=== PATIENT | male | born 1950 | race Caucasian/White ===

== ENCOUNTER 2021-06-01 15:46 | Emergency (ER) | payer OTHER ==
[~2021-06-01] VITALS: Ht 172.7 cm; Wt 61.0 kg
[~2021-06-01 15:46] MED LIST: CYCL-1 PO; NAPR500T6 PO
[2021-06-01] MEDS ORDERED: normal saline 1000ml 1,000 ML IV ONE ×2 (16:25→17:15)
[2021-06-01 16:46] LABS: BASOPHILS # (AUTO) 0.1 X10'3 (0-0.2); BASOPHILS % (AUTO) 0.8 % (0-1); EOSINOPHILS # (AUTO) 0.2 X10'3 (0-0.9); EOSINOPHILS % (AUTO) 2.9 % (0-6); HEMATOCRIT 35.8 % (42.0-52.0); HEMOGLOBIN 11.9 g/dl (14.0-17.9); LYMPHOCYTES # (AUTO) 1.5 X10'3 (1.1-4.8); LYMPHOCYTES % (AUTO) 20.8 % (21-51); MEAN CORPUSCULAR HEMOGLOBIN 26.4 PG (27.0-31.0); MEAN CORPUSCULAR HGB CONC 33.3 g/dL (33.0-36.5); MEAN CORPUSCULAR VOLUME 79.3 FL (78-98); MEAN PLATELET VOLUME 7.8 FL (7.4-10.4); MONOCYTES # (AUTO) 0.4 X10'3 (0-0.9); MONOCYTES % (AUTO) 5.7 % (2-12); NEUTROPHILS # (AUTO) 5.1 X10'3 (1.8-7.7); NEUTROPHILS % (AUTO) 69.8 % (42-75); PLATELET COUNT 310 X10'3 (140-440); RED BLOOD COUNT 4.51 X10'6 (4.70-6.10); RED CELL DISTRIBUTION WIDTH 15.2 % (11.5-14.5); WHITE BLOOD COUNT 7.4 X10'3 (4.5-11.0)
--- NOTE | 2021-06-01 16:47 | NUR ---
NO ROOM AVAILABLE, STARTED TREATMENT OUTSIDE, PT IS RESTING QUIETLY IN CHAIR
[2021-06-01 17:05] LABS: ALANINE AMINOTRANSFERASE 16 U/L (12-78); ALBUMIN/GLOBULIN RATIO 0.8 (1.1-1.5); ALKALINE PHOSPHATASE 107 IU/L (46-116); ANION GAP 10 (8-16); ASPARTATE AMINO TRANSFERASE 11 U/L (10-37); BILIRUBIN,TOTAL 0.3 MG/DL (0.1-1.0); BLOOD UREA NITROGEN 25 MG/DL (7-18); BUN/CREATININE RATIO 24.5 (5.4-32.0); CALCIUM 8.3 MG/DL (8.5-10.1); CHLORIDE 100 MMOL/L (99-107); CREATININE 1.02 MG/DL (0.60-1.10); GLUCOSE 411 MG/DL (70-104); POTASSIUM 4.9 MMOL/L (3.5-5.1); SODIUM 133 MMOL/L (135-145); TOTAL CARBON DIOXIDE 22.6 MMOL/L (24-32); TOTAL PROTEIN 6.8 G/DL (6.4-8.2); eGFR 72 ML/MIN
--- NOTE | 2021-06-01 17:35 | NUR ---
PT TO CT,
[2021-06-01 18:55] LABS: CLARITY,URINE CLEAR (Clear); COLOR,URINE YELLOW (Yellow); GLUCOSE, URINE >=1000 mg/dl (Neg); KETONES,URINE NEGATIVE (Neg); LEUKOCYTE ESTERASE ,URINE NEGATIVE (Neg); NITRITES, URINE NEGATIVE (Neg); OCCULT BLOOD,URINE NEGATIVE (Neg); PROTEIN,URINE NEGATIVE (Neg)
[2021-06-01 19:08] LABS: URINE AMPHETAMINE SCREEN POSITIVE (Neg); URINE BARBITUATE SCREEN NEGATIVE (Neg); URINE BENZODIAZEPINES SCREEN NEGATIVE (Neg); URINE CANNABINOID SCREEN NEGATIVE (Neg); URINE COCAINE SCREEN NEGATIVE (Neg); URINE METHADONE SCREEN NEGATIVE (Neg); URINE OPIATE SCREEN NEGATIVE (Neg); URINE PHENCYCLIDINE SCREEN NEGATIVE (Neg)
[2021-06-01 19:09] LABS: UA COLLECTION TYPE VOIDED
[2021-06-01 19:10] LABS: BACTERIA,URINE NONE SEEN /HPF (Neg); MUCUS STRANDS NONE SEEN /LPF (Neg); RBC,URINE NONE SEEN /HPF (0-2); SQUAMOUS EPITHELIAL CELL,UR NONE SEEN /LPF (FEW); WBC,URINE 0-4 /HPF (0-4)
[2021-06-01 20:25] VITALS: BP 130/68
[2021-06-01 20:59] LABS: ETHANOL < 0.010 GM/DL (0.0-0.010); MAGNESIUM 1.5 MG/DL (1.5-2.4)
== END 2021-06-01 21:52 | disposition home or self-care (01) ==
LOC: ER 15:47
DX: R53.1 Weakness (principal); Z20.822 Contact with and (suspected) exposure to COVID-19; R51.9 Headache, unspecified; R42 Dizziness and giddiness; R11.0 Nausea; E11.9 Type 2 diabetes mellitus without complications; G89.29 Other chronic pain; Z72.89 Other problems related to lifestyle; Z79.899 Other long term (current) drug therapy
CPT/HCPCS: 36415; 70450; 71045; 80053; 80305; 80320; 81001; 82948; 83605; 83735; 83880; 84145; 84484; 85025; 87040; 87635; 93005; 96360; 99285; C9803; J7030; 87077; 87186

== ENCOUNTER 2023-03-28 12:10 | Emergency (ER) | payer OTHER, MEDICARE ==
[~2023-03-28] VITALS: Ht 172.7 cm; Wt 45.0 kg
[2023-03-28 12:29] VITALS: BP 99/43
== END 2023-03-28 16:11 | disposition left against medical advice (07) ==
LOC: ER 12:10
DX: R53.1 Weakness (principal); Z53.21 Procedure and treatment not carried out due to patient leaving prior to being seen by health care provider
CPT/HCPCS: 99281

== ENCOUNTER 2025-01-11 17:11 | Emergency (ER) | payer OTHER, MEDICARE ==
[~2025-01-11] VITALS: Ht 172.7 cm; Wt 63.6 kg
[~2025-01-11 17:11] MED LIST changes: +NAPR-1480 PO; -NAPR500T6 PO
[2025-01-11 19:45] LABS: BASOPHILS # (AUTO) 0.1 X10'3 (0-0.2); BASOPHILS % (AUTO) 1.5 % (0-1); EOSINOPHILS # (AUTO) 0.4 X10'3 (0-0.9); EOSINOPHILS % (AUTO) 5.8 % (0-6); HEMOGLOBIN 10.1 g/dl (14.0-17.9); LYMPHOCYTES # (AUTO) 1.6 X10'3 (1.1-4.8); LYMPHOCYTES % (AUTO) 21.3 % (21-51); MEAN CORPUSCULAR HEMOGLOBIN 23.5 PG (27.0-31.0); MEAN CORPUSCULAR HGB CONC 32.5 g/dL (33.0-36.5); MEAN CORPUSCULAR VOLUME 72.2 FL (78-98); MEAN PLATELET VOLUME 7.5 FL (7.4-10.4); MONOCYTES # (AUTO) 0.6 X10'3 (0-0.9); MONOCYTES % (AUTO) 7.9 % (2-12); NEUTROPHILS # (AUTO) 4.9 X10'3 (1.8-7.7); NEUTROPHILS % (AUTO) 63.5 % (42-75); PLATELET COUNT 346 X10'3 (140-440); RED CELL DISTRIBUTION WIDTH 17.6 % (11.5-14.5); WHITE BLOOD COUNT 7.7 X10'3 (4.5-11.0)
[2025-01-11 19:47] LABS: ANION GAP 10 (8-16); CHLORIDE 104 MMOL/L (99-107); POTASSIUM 4.6 MMOL/L (3.5-5.1); SODIUM 139 MMOL/L (135-145); TOTAL CARBON DIOXIDE 24.7 MMOL/L (24-32)
[2025-01-11 20:11] LABS: ALANINE AMINOTRANSFERASE 19 U/L (12-78); ALBUMIN 3.2 G/DL (3.4-5.0); ALBUMIN/GLOBULIN RATIO 0.7 (1.1-1.5); ALKALINE PHOSPHATASE 129 IU/L (46-116); ASPARTATE AMINO TRANSFERASE 18 U/L (10-37); BILIRUBIN,TOTAL 0.4 MG/DL (0.1-1.0); BLOOD UREA NITROGEN 26 MG/DL (7-18); BUN/CREATININE RATIO 22.6 (10.0-20.0); CALCIUM 8.9 MG/DL (8.5-10.1); CREATININE 1.15 MG/DL (0.60-1.10); GLUCOSE 124 MG/DL (70-104); TOTAL PROTEIN 7.8 G/DL (6.4-8.2); eCRCL 52 ML/MIN; eGFR 63 ML/MIN
[2025-01-11] MEDS ORDERED: TRAM50TA2 PO (20:32)
[2025-01-11 21:05] VITALS: BP 110/64; PULSE 80; RESP 18; TEMP 98.6; O2SAT 99
== END 2025-01-11 21:05 | disposition home or self-care (01) ==
LOC: ER 17:12
DX: E11.621 Type 2 diabetes mellitus with foot ulcer (principal); G89.29 Other chronic pain; M54.9 Dorsalgia, unspecified; Z72.89 Other problems related to lifestyle
CPT/HCPCS: 36415; 73630; 80053; 83605; 85025; 99284; A6223; A6446

== ENCOUNTER 2025-03-14 17:26 | Emergency (ER) | payer MEDICARE, OTHER ==
[~2025-03-14] VITALS: Ht 165.1 cm; Wt 55.9 kg
[2025-03-14] MEDS ORDERED: DICL100G59 TOP (17:50)
[2025-03-14] MEDS ORDERED: ACET-75 PO (17:50)
[2025-03-14] MEDS ORDERED: LACT1CAP60 (17:50)
[2025-03-14] MEDS ORDERED: GABA-530 PO (17:50)
[2025-03-14] MEDS ORDERED: ATOR20TA66 PO (17:50)
[2025-03-14] MEDS ORDERED: COLL30OI (17:50)
[2025-03-14] MEDS ORDERED: MELA5TAB66 PO (17:50)
[2025-03-14] MEDS ORDERED: FERR325T29 (17:50)
[2025-03-14 18:01] LABS: BASOPHILS % (AUTO) 0.2 % (0-1); EOSINOPHILS % (AUTO) 0.1 % (0-6); HEMATOCRIT 28.6 % (42.0-52.0); HEMOGLOBIN 9.5 g/dl (14.0-17.9); LYMPHOCYTES % (AUTO) 7.5 % (21-51); MEAN CORPUSCULAR HEMOGLOBIN 24.3 PG (27.0-31.0); MEAN CORPUSCULAR HGB CONC 33.4 g/dL (33.0-36.5); MEAN CORPUSCULAR VOLUME 72.8 FL (78-98); MEAN PLATELET VOLUME 7.3 FL (7.4-10.4); MONOCYTES # (AUTO) 0.7 X10'3 (0-0.9); MONOCYTES % (AUTO) 5.4 % (2-12); NEUTROPHILS # (AUTO) 11.5 X10'3 (1.8-7.7); NEUTROPHILS % (AUTO) 86.8 % (42-75); PLATELET COUNT 305 X10'3 (140-440); RED BLOOD COUNT 3.93 X10'6 (4.70-6.10); RED CELL DISTRIBUTION WIDTH 20.5 % (11.5-14.5); WHITE BLOOD COUNT 13.2 X10'3 (4.5-11.0)
--- NOTE | 2025-03-14 18:27 | Physician Documentation ---
History of Present Illness ~ Chief Complaint: Wound Stated Complaint: FEET SWOLLEN/WOUND ON FOOT Time Seen by MD: 17:38 HPI The patient is Seen today with complaints of diabetic pressure ulcer on posterior lateral right heel measuring approximately 5 cm in length and 4 cm in across. Patient is seen today with his family members who state that patient developed acute pain of his right 3rd toe just today. Patient is being followed closely for wound care of the diabetic ulcer. Patient developed some bruising along the 3rd toe without any known injury. Tetanus within 5 years?: No Medication Reconciliation Allergies: Coded Allergies: No Known Allergies (Unverified , 03/28/23) Scheduled Atorvastatin Calcium (Atorvastatin Calcium), 1 TAB PO DAILY, (Reported) Diclofenac Sodium (Diclofenac Sodium), 2 GM TOP QID, (Reported) Ferrous Sulfate (Ferrous Sulfate), 1 TAB DAILY, (Reported) Gabapentin (Gabapentin), 1 CAP PO TID, (Reported) Melatonin (Melatonin), 1 TAB PO HS, (Reported) Naproxen (Naproxen), 1 TABLET PO BID Scheduled PRN Acetaminophen (Acetaminophen), 2 TAB PO Q8H PRN for pain, (Reported) Miscellaneous Medications Collagenase Oint* (Santyl Oint*), (Reported) Lactobac Cmb #3/Fos/Pantethine (Probiotic & Acidophilus Cap), (Reported) Discontinued Medications Cyclobenzaprine* (Cyclobenzaprine*), 1 TABLET PO HS PRN for muscle spasms Discontinued Reason: patient no longer taking Past Medical History Past Medical History: Diabetes, Chronic Back Pain Past Surgical History: no surgical history Alcohol Use: Occasionally Drug Use: none Lives In: Home Occupation: disabled Review of Systems Constitutional: Denies: chills, fever, weakness Eyes: Denies: pain, blurred vision ENT: Denies: ear pain, nose pain, throat pain, mouth pain Respiratory: Denies: cough, shortness of breath Cardiovascular: Denies: chest pain, palpitations Gastrointestinal: Denies: abdominal pain, nausea, vomiting Genitourinary: Denies: burning, dysuria Male Genitalia: Denies: penile discharge, testicular pain Neurological: Denies: headache, dizziness Musculoskeletal: Denies: pain, swelling Integumentary: Denies: rash, lesions Allergic/Immunologic: Denies: hives, itching Hematologic/Lymphatic: Denies: no symptoms reported Psychiatric: Denies: depression, anxiety Physical Exam Vital Signs: Temperature: 98.5, Source: Temporal, Heart Rate: 86, Respiratory Rate: 18, BP: 112/51, Pulse Oximetry: 100, Weight: 55.910 Oxygen Flow Rate: 0 Physical Exam General: Awake and Alert, no acute distress. HEENT: Conjunctiva pink, Sclera clear, Mucus Membranes moist. Neck: Supple without masses and tenderness. Resp: Unlabored. Lungs clear to auscultation bilaterally. Heart: Regular Rate and rhythm, normal S1 and S2 without murmur, rub or gallop. Abdomen: Soft and non tender no organomegaly Extremities: Patient on exam has nonhealing ulcer to the lateral aspect of the right heel measuring approximately 5 cm x 4 cm. Patient also has absent pedal pulses of the right lower extremity. Patient has slow capillary refill distally and diminished light touch sensation distally of the right lower extremity. Skin: Warm and Dry. Progress Progress Note Family members here to pickle pumper patient. They signed out against medical advice. Risks discussed. They plan on going to [facility] Emergency room. Results/Orders Results/Orders Vital Signs 03/14/25 03/14/25 03/14/25 03/14/25 17:29 18:37 18:39 21:11 Temp 98.5 Pulse 86 83 98 Resp 18 18 B/P (MAP) 112/51 140/71 (94) 143/75 (97) Pulse Ox 100 O2 Flow Rate 0 03/14/25 03/15/25 03/15/25 03/15/25 22:22 00:28 01:43 05:08 Pulse 81 73 74 81 Resp 17 17 B/P (MAP) 160/65 (96) 134/66 (88) 158/65 (96) 128/66 (86) 03/15/25 03/15/25 03/15/25 03/15/25 07:07 09:15 09:46 11:16 Pulse 65 75 65 66 Resp 14 16 18 16 B/P (MAP) 146/86 (106) 133/60 (84) 133/60 (84) 98/72 (81) Pulse Ox 98 98 97 98 O2 Flow Rate 0 03/15/25 03/15/25 03/15/25 03/15/25 12:01 12:02 12:38 12:44 Temp 97.6 Pulse 68 80 Resp 18 18 16 16 B/P (MAP) 145/79 (101) 145/79 (101) Pulse Ox 97 98 O2 Flow Rate 0 0 03/15/25 03/15/25 03/15/25 03/15/25 13:36 14:40 16:27 18:42 Pulse 88 93 93 Resp 14 12 16 16 B/P (MAP) 141/94 (110) 116/68 (84) 114/78 (90) Pulse Ox 99 98 97 O2 Flow Rate 0 0 03/15/25 03/15/25 18:43 18:44 Resp 18 B/P (MAP) Laboratory Tests Test 03/14/25 17:43 03/14/25 18:04 03/14/25 19:05 03/14/25 19:52 White Blood Count 13.2 H Red Blood Count 3.93 L Hemoglobin 9.5 L Hematocrit 28.6 L Mean Corpuscular Volume 72.8 L Mean Corpuscular Hemoglobin 24.3 L Mean Corpuscular Hemoglobin Concent 33.4 Red Cell Distribution Width 20.5 H Platelet Count 305 Mean Platelet Volume 7.3 L Neutrophils (%) (Auto) 86.8 H Lymphocytes (%) (Auto) 7.5 L Monocytes (%) (Auto) 5.4 Eosinophils (%) (Auto) 0.1 Basophils (%) (Auto) 0.2 Neutrophils # (Auto) 11.5 H Lymphocytes # (Auto) 1.0 L Monocytes # (Auto) 0.7 Eosinophils # (Auto) 0.0 Basophils # (Auto) 0.0 CBC Comment Platelet Estimate Normal Red Blood Cell Morphology Perf Basophilic Stippling Anisocytosis 3+ Microcytosis 1+ Erythrocyte Sedimentation Rate 66 H Sodium Level 136 Potassium Level 3.9 Chloride Level 107 Carbon Dioxide Level 24.3 Anion Gap 5 L Blood Urea Nitrogen 28 H Creatinine 0.94 Estimated GFR/1.73 m2 79 BUN/Creatinine Ratio 29.8 H 34.3 H Glucose Level 253 H Calcium Level 8.9 C-Reactive Protein 13.97 H Albumin 3.1 L Procalcitonin 0.13 Chemistry Comments Random Vancomycin Level 0.1 L Glucometer 235 H Lactic Acid Level 1.4 Bedside Hemoglobin 9.2 L Bedside Hematocrit 27 L Bedside Sodium 139 Bedside Potassium 4.0 Bedside Chloride 107 Bedside Total CO2 20 L Bedside Anion Gap 12 Bedside Blood Urea Nitrogen 24 H Bedside Creatinine 0.7 L Bedside Estimated GFR (eGFR) > 90 Bedside Glucose 229 H Bedside Ionized Calcium (Kallie) 1.23 Test 03/14/25 21:39 03/15/25 08:41 03/15/25 11:52 03/15/25 14:37 Urine Specimen Description Cln catch midstream Urine Color Yellow Urine Clarity Clear Urine pH 6.0 Urine Specific Caro 1.025 Urine Protein 100 H Urine Glucose (UA) 500 H Urine Ketones Negative Urine Occult Blood Trace-intact Urine Nitrite Negative Urine Bilirubin Negative Urine Urobilinogen 0.2 Urine Leukocyte Esterase Negative Urine RBC 0-2 Urine WBC 0-4 Urine Squamous Epithelial Cells Few Urine Bacteria None seen Urine Mucus Few Urine Culture Indicated Not ind Volume Urine Centrifuged 10 ml Urine Comment Glucometer 90 136 H 120 H EKG/XRAY/CT/US/VASC/MRI Bone/Soft Tissue X-Ray (Ext.) : Additional Comment DIAGNOSTIC RADIOLOGY Patient: NAT CASANOVA Medical Record: [id number] [facility] : 1950, Age: 74 Sex: Male Location: ER Patient Status: [facility] ER Service Date/Time: 03/14/251847 Ordering Physician: BAMBI CORTES PAC Exam: FOOT, COMPLETE (3VW MIN) Clinical History foot pain Comparison None Technique: right foot 3 views Without Contrast NAT CASANOVA, [id number] Findings: Bones: No displaced fracture. old fracture at the base of the fourth and fifth metatarsal. Soft tissues: No swelling. No foreign body. Basilar opacifications Joints: Visualized joints are within normal limits. degenerative changes in the midfoot and first MTP joint Impression: 1. No acute fracture or dislocation. 2. Chronic appearing fracture of the fourth and fifth metatarsals 3. Degenerative changes. 4. Osteopenic bones This report was electronically signed by Adam Altamirano MD on 03/14/2025 9:44:05 PM. Electronically Signed by:ADAM ALTAMIRANO MD Date & Time: 03/14/252145 Dictated by: ADAM ALTAMIRANO MD Dictation date and time: 03/14/252145 Primary Care Provider: NO PRIMARY CARE PROVIDER cc: BAMBI CORTES ~ Medical Decision Making Findings The patient is Seen today with complaints of diabetic pressure ulcer on posterior lateral right heel measuring approximately 5 cm in length and 4 cm in across. Patient is seen today with his family members who state that patient developed acute pain of his right 3rd toe just today. Patient is being followed closely for wound care of the diabetic ulcer. Patient developed some bruising along the 3rd toe without any known injury. Patient labs did show concern for sepsis along with vitals. Hospitalist was consulted and patient was started on Zosyn and vancomycin IV. Patient also given Benadryl 50 mg and Gray 5/325 mg by mouth for pain into help patient sleep. Patient did have arterial Dopplers/vascular study done of right lower extremity that did show severe peripheral vascular disease as well as patient had ankle-brachial index right lower extremity that was 0.25. We recommended transfer to hospital that has vascular specialist however they declined transfer outside of the area. Patient and family members did agree to antibiotic treatment tonight in the ED and afterwards they will transfer to [facility] for vascular surgery consult. Departure Disposition: LEFT AGAINST MEDICAL ADVICE Impression: Primary Impression: Wound Additional Impression: PVD (peripheral vascular disease) Condition: Stable Additional Instructions: Patient labs did show concern for sepsis along with vitals. Hospitalist was consulted and patient was started on Zosyn and vancomycin IV. Patient also given Benadryl 50 mg and Gray 5/325 mg by mouth for pain into help patient sleep. Patient did have arterial Dopplers/vascular study done of right lower extremity that did show severe peripheral vascular disease as well as patient had ankle-brachial index right lower extremity that was 0.25. We recommended transfer to hospital that has vascular specialist however they declined transfer outside of the area. Patient and family members did agree to antibiotic treatment tonight in the ED and afterwards they will transfer to [facility] for vascular surgery consult. Referrals: NO PRIMARY CARE PROVIDER (PCP) Signature Scribe Signature: No scribe Attestation: The note accurately reflects work and decisions made by me.Onel Bosch MD 03/15/25 20:56 No scribe BAMBI CORTES March 14, 2025 18:27 ONEL BOSCH MD March 15, 2025 20:56
[2025-03-14 19:34] LABS: ALBUMIN 3.1 G/DL (3.4-5.0); ANION GAP 5 (8-16); BLOOD UREA NITROGEN 28 MG/DL (7-18); BUN/CREATININE RATIO 29.8 (10.0-20.0); C-REACTIVE PROTEIN 13.97 MG/DL (0.0-0.5); CALCIUM 8.9 MG/DL (8.5-10.1); CHLORIDE 107 MMOL/L (99-107); CREATININE 0.94 MG/DL (0.60-1.10); GLUCOSE 253 MG/DL (70-104); POTASSIUM 3.9 MMOL/L (3.5-5.1); SODIUM 136 MMOL/L (135-145); TOTAL CARBON DIOXIDE 24.3 MMOL/L (24-32); eCRCL 56 ML/MIN; eGFR 79 ML/MIN
[2025-03-14 19:38] LABS: ANISOCYTOSIS 3+; PLATELET ESTIMATE NORMAL
[2025-03-14 19:39] LABS: MICROCYTOSIS 1+
[2025-03-14 20:01] LABS: ISTAT ANION GAP 12 (8-12); ISTAT BUN 24 mg/dL (7-18); ISTAT CL 107 mmol/L (99-107); ISTAT CREATININE 0.7 mg/dL (0.8-1.3); ISTAT GLUCOSE 229 mg/dL (70-104); ISTAT HGB 9.2 g/dl (14.0-17.9); ISTAT Hct 27 %PCV (42-52); ISTAT IONIZED CALCIUM 1.23 mmol/L (1.03-1.32); ISTAT NA 139 mmol/L (135-145); ISTAT TOTAL CO2 20 mmol/L (24-32); ISTAT eGFR > 90 ML/MIN; POC BUN/CREATININE RATIO 34.3 (5.4-32.0)
--- NOTE | 2025-03-14 21:46 | RADIOLOGY REPORT ---
Clinical History foot pain Comparison None Technique: right foot 3 views Without Contrast EDILBERTONAT, [id number] Findings: Bones: No displaced fracture. old fracture at the base of the fourth and fifth metatarsal. Soft tissues: No swelling. No foreign body. Basilar opacifications Joints: Visualized joints are within normal limits. degenerative changes in the midfoot and first MT P joint Impression: 1. No acute fracture or dislocation. 2. Chronic appearing fracture of the fourth and fifth metatarsals 3. Degenerative changes. 4. Osteopenic bones This report was electronically signed by Adam Caro MD on 03/14/2025 9:44:05 PM.
[2025-03-14 22:05] LABS: BILIRUBIN,URINE NEGATIVE (Neg); CLARITY,URINE CLEAR (Clear); COLOR,URINE YELLOW (Yellow); GLUCOSE, URINE 500 mg/dl (Neg); KETONES,URINE NEGATIVE (Neg); LEUKOCYTE ESTERASE ,URINE NEGATIVE (Neg); NITRITES, URINE NEGATIVE (Neg); OCCULT BLOOD,URINE TRACE-INTACT (Neg); PROTEIN,URINE 100 mg/dl (Neg); UROBILINOGEN,URINE 0.2 E.U/dL (0.2-1.0)
[2025-03-14 22:09] LABS: UA COLLECTION TYPE CLN CATCH MIDSTREAM
[2025-03-14 22:15] LABS: RBC,URINE 0-2 /HPF (0-2); WBC,URINE 0-4 /HPF (0-4)
[2025-03-14 22:16] LABS: MUCUS STRANDS FEW /LPF (Neg); SQUAMOUS EPITHELIAL CELL,UR FEW /LPF (FEW)
[2025-03-14 22:17] LABS: BACTERIA,URINE NONE SEEN /HPF (Neg)
[2025-03-14] MEDS: piperacillin/tazo 3.375gm/50ml 50 ML IV STA (23:12)
[2025-03-15] MEDS ORDERED: VANCOMYCIN/H2O 1.5g/300mL PB 300 ML IV ONE
[2025-03-15] MEDS: HYDROcodone/acetaminophen 5mg/325mg tablet PO STA (00:23)
[2025-03-15] MEDS: diphenhydrAMINE 25mg capsule PO STA (00:23)
[2025-03-15] MEDS: vancomycin inj. 750 MG in normal saline 250ml IV soln 250 ML IV SCH (01:10)
[2025-03-15 01:41] LABS: VANCOMYCIN,RANDOM 0.1 ug/mL (20.0-30.0)
[2025-03-15] MEDS: VANCOMYCIN/H2O 1.5g/300mL PB 300 ML IV ONE (02:09)
--- NOTE | 2025-03-15 02:31 | VASCULAR REPORT ---
BILATERAL Lower Extremity Arterial Duplex Date: 03/14/2025 07:28 PM Clinical History: Acute pain right 3rd toe Comparison: None Technique: Duplex Doppler evaluation including color Doppler and spectral/pulsed waveform analysis of the right lower extremity arteries was performed. Finding: ARON: Right 0.25, left 0.61 RIGHT: Peak systolic velocities are as follows: RECORD TESTER 210 cm/s Deep femoral 170 cm/s SFA proximal 114 cm/s SFA mid-portion 331 cm/s SFA distal 14.3 cm/s Popliteal 26.6 cm/s Posterior tibial 0 cm/s Anterior tibial 16 cm/s Peroneal 9.1 cm/s The waveforms are monophasic at the popliteal artery and distal REFERENCE VALUES, [facility] ([facility]) vascular Imaging Lab Criteria: Peak systolic velocity ranges (in cm/sec) are as follows: <150 cm/s - <20 % stenosis 150-200 cm/s - 20-49% stenosis 200-300 cm/s - 50-75% stenosis >300 cm/s -> 75% stenosis IMPRESSION: 1. Severe stenosis in the right mid superficial femoral artery and additional [id number] stenos es in the mid superficial femoral artery. 2. Occlusion of the distal posterior tibial artery. 3. ARON: Right 0.25, left 0.61
--- NOTE | 2025-03-15 02:31 | VASCULAR REPORT ---
BILATERAL Lower Extremity Arterial Duplex Date: 03/14/2025 07:28 PM Clinical History: Acute pain right 3rd toe Comparison: None Technique: Duplex Doppler evaluation including color Doppler and spectral/pulsed waveform analysis of the right lower extremity arteries was performed. Finding: ARON: Right 0.25, left 0.61 RIGHT: Peak systolic velocities are as follows: [employer]IOR [employer]EL[employer] 210 cm/s Deep femoral 170 cm/s SFA proximal 114 cm/s SFA mid-portion 331 cm/s SFA distal 14.3 cm/s Popliteal 26.6 cm/s Posterior tibial 0 cm/s Anterior tibial 16 cm/s Peroneal 9.1 cm/s The waveforms are monophasic at the popliteal artery and distal REFERENCE VALUES, [facility] ([facility]) vascular Imaging Lab Criteria: Peak systolic velocity ranges (in cm/sec) are as follows: <150 cm/s - <20 % stenosis 150-200 cm/s - 20-49% stenosis 200-300 cm/s - 50-75% stenosis >300 cm/s -> 75% stenosis IMPRESSION: 1. Severe stenosis in the right mid superficial femoral artery and additional [id number]-hj-hqahjwca stenos es in the mid superficial femoral artery. 2. Occlusion of the distal posterior tibial artery. 3. ARON: Right 0.25, left 0.61
[2025-03-15] MEDS: LORazepam 1 MG tablet PO ONE (03:42)
[2025-03-15] MEDS: haloperidol lactate 5mg/ml inj IM ONE (04:56)
[2025-03-15] MEDS: LORazepam 2 mg/ml vial IV ONE ×2 (08:23→11:56)
[2025-03-15] MEDS: dextrose 5%-normal saline 1,000 ML IV SCH (09:45)
[2025-03-15] MEDS ORDERED: VANCOMYCIN/H2O 750mg/150mL PB 150 ML IV SCH (12:00)
[2025-03-15 12:01] VITALS: TEMP 97.6
[2025-03-15] MEDS ORDERED: iohexol 350MG/ML 100ml bottle IV ONE (12:26)
[2025-03-15] MEDS: morphine 4 MG/ML inj SYRINge IV ONE (12:44)
--- NOTE | 2025-03-15 14:48 | RADIOLOGY REPORT ---
Procedure: CT CTA ABDOMEN LOWER EXTR RUNOFF 03/15/2025 12:55 PM Indication: severe PAD, worseening RLE Comparison Study: None Technique: Axial images were obtained and reformatted in coronal and sagittal planes. All CT scans at this medical facility are performed using dose modulation techniques as appropriate to a performed e xam including the following: Automated exposure control was utilized; adjustment of the MA and/or KV according to patient size; and use of iterative reconstruction technique. CT Dose: CTDI volume is 8, 6.8 mGy. Dose-length product is 1447.3 mGy*cm FINDINGS: Vasculature: No abdominal aorta aneurysm or evidence of dissection. Diffuse atherosclerotic calcific ation of the aortoiliac arteries noted. No significant aortic stenosis. The celiac trunk and superior mesenteric arteries are unremarkable. Calcified plaque formation of the bilateral proximal renal ar teries noted moderate stenosis. The inferior mesenteric artery is unremarkable. Diffuse calcified miriam que formation of the bilateral common iliac arteries a superimposed soft plaque in the proximal right common iliac artery measuring 1.2 cm in length 0.4 cm in thickness with resultant 50% stenosis. Scat tered calcified plaques of the bilateral external iliac arteries noted. A 0.8 x 0.3 cm soft plaque is seen in distal right external iliac artery with resultant less than 50% stenosis. This plaque seems to be loose with a small attachment base which makes at danger of distal embolization. Diffuse athe rosclerotic calcification of the bilateral internal iliac arteries noted. In the right lower extremity, diffuse atherosclerotic calcification of the common iliac artery noted with up to 80% stenosis. Short-segment high-grade stenosis of the proximal deep femoral artery noted. Diffuse atherosclerotic calcification throughout the superficial femoral artery with several short-s egment areas of high-grade stenosis in mid to distal artery. High-grade stenosis of the proximal popl iteal artery at junction with distal femoral artery. Diffuse atherosclerotic calcification of the tib ioperoneal trunk, anterior tibial, posterior tibial peroneal arteries. Evaluation of the patency of t he vessels is limited due to small caliber and diffuse atherosclerotic calcification. The proximal an terior tibial and proximal to mid posterior tibial veins appear occluded. Distal posterior tibial art pinky seems to be patent. Dorsalis pedis artery is diffusely calcified which limits evaluation. The pe roneal artery is patent. In the left lower extremity, mild common femoral artery stenosis up to 50% noted. Mild atheroscleroti c calcification of the deep femoral artery with less than 50% stenosis. Diffuse atherosclerotic calci fication of the superficial femoral artery with areas of moderate to severe stenosis in the mid and d istal segments. High-grade stenosis of the proximal popliteal artery. Diffuse atherosclerotic calcif ication of the tibioperoneal trunk, anterior tibial, posterior tibial and peroneal arteries significa ntly limiting evaluation. The anterior tibial artery appears patent proximally but mid and distal seg ments saulo Occluded. The proximal and mid posterior tibial arteries are occluded but the distal se gment seems patent. Distal peroneal vein appears patent. Dorsalis pedis artery can not be evaluated d ue to diffuse atherosclerotic calcifications. Other: Lower Chest: Mild bibasilar pulmonary opacities mild bronchiectasis. Mild cardiomegaly. Hepatobiliary: Unremarkable. Spleen: Unremarkable. Pancreas: Unremarkable. Adrenal Glands: Unremarkable. tract: The kidneys are normal in size bilaterally without hydronephrosis or nephrolithiasis. The u rinary bladder is unremarkable. GI tract: The stomach is grossly normal in appearance. No evidence of small bowel obstruction. Scatte red colonic diverticula are noted without evidence of diverticulitis. The appendix is normal. Lymphatics: No mesenteric, retroperitoneal or periportal lymphadenopathy. Pelvic Organs: Unremarkable Bones/soft tissues: No acute abnormality. Multilevel degenerative changes of the lumbar spine noted. Other: None. IMPRESSION: 1. Advanced bilateral lower extremities peripheral arterial disease with several short-segment foci o f high-grade stenosis in the bilateral superficial femoral arteries least 80% stenosis. The bilateral calf arteries are significantly stenotic. Recommend vascular surgery consultation. 2. Subcentimeter partially loose soft plaque /embolus in the right external iliac artery, which is a t risk of distal embolization.
[2025-03-15 18:42] VITALS: BP 114/78; O2SAT 97
[2025-03-15 18:44] VITALS: RESP 18
[2025-03-15 21:32] VITALS: PULSE 87
== END 2025-03-15 21:34 | disposition left against medical advice (07) ==
LOC: ER 17:26
DX: S90.921A Unspecified superficial injury of right foot, initial encounter (principal); E11.51 Type 2 diabetes mellitus with diabetic peripheral angiopathy without gangrene; E11.621 Type 2 diabetes mellitus with foot ulcer; E11.622 Type 2 diabetes mellitus with other skin ulcer; L97.519 Non-pressure chronic ulcer of other part of right foot with unspecified severity; X58.XXXA Exposure to other specified factors, initial encounter; Y93.89 Activity, other specified; Y92.89 Other specified places as the place of occurrence of the external cause; Y99.8 Other external cause status
CPT/HCPCS: 36415; 73630; 75635; 80047; 80048; 80202; 81001; 82948; 83605; 84145; 85025; 85651; 86140; 93922; 93926; 96361; 96365; 96366; 96367; 96372; 96375; 96376; 99285; A6590; J1630; J2060; J2270; J2543; J3372; J7042; J7070; Q0163; Q9967; 85008